=== PATIENT | male | born 1990 | race African-American/Black ===

== ENCOUNTER 2024-12-10 09:42 | Emergency (ER) | payer SELFPAY ==
[2024-12-10 09:54] VITALS: BP 128/76; PULSE 73; RESP 20; TEMP 98.8; BMI 23.7
== END 2024-12-10 11:42 | disposition home or self-care (01) ==
LOC: JER 09:42
DX: M21.332 Wrist drop, left wrist (principal)
CPT/HCPCS: 82962; 93005; 93010; 99283-25